=== PATIENT | male | born 1970 | race African-American/Black ===

== ENCOUNTER 2017-11-09 22:12 | Emergency (ER) | payer OTHER ==
[~2017-11-09] VITALS: Ht 185.4 cm; Wt 151.9 kg
[~2017-11-09 22:12] MED LIST: ALLEGRA180 MG PO; LASIX20 MG PO; NEXIUM40 MG PO; TRAMADOL HCL50 MG PO; ZOFRAN4 MG PO
[2017-11-10] MEDS ORDERED: NAPROSYN500 MG PO (00:31)
[2017-11-10 01:05] VITALS: BP 146/80
== END 2017-11-10 01:06 | disposition home or self-care (01) ==
LOC: EME 22:12
DX: S63.610A Unspecified sprain of right index finger, initial encounter (principal); X58.XXXA Exposure to other specified factors, initial encounter
CPT/HCPCS: 73140; 99281; 99283